=== PATIENT | male | born 1985 | race Asian ===

== ENCOUNTER 2018-11-15 12:49 | Emergency (ER) | payer OTHER ==
[2018-11-15] MEDS ORDERED: ONDANSETRON 4 MG/2 ML VIAL IVP ONE (13:45)
[2018-11-15] MEDS ORDERED: NS 1,000 ML IV ONE (13:45)
[2018-11-15] MEDS ORDERED: HYDROmorphONE/DILAUDID 2 MG/ML INJ IVP ONE ×2 (13:45→15:06)
--- NOTE | 2018-11-15 13:48 | EDPHY ---
General - History Smoking Status: Current some day smoker Time Seen by Provider: 11/15/18 13:37 Narrative: 1456: I examined this patient at the request of ROSA M Zheng. I have discussed the risks of not having a cholecystectomy as he could develop a severe infection. I discussed the process of the cholecystectomy with the patient in addition to arranging help for the patient after his surgery. Patient would like to talk with his family in [place] prior to deciding on having surgery. He is comfortable with proceeding with the surgery at this time. (Yung Moreno) CLINICAL IMPRESSION: Acute cholecystitis, cholelithiasis ASSESSMENT/PLAN: 33-year-old [place] male presents to the emergency department with complaints of right upper quadrant abdominal pain, nausea, vomiting since last night. Patient has a known history of cholelithiasis diagnosed several years ago by ultrasound in [place]. Patient has been NPO since this morning when he had a small amount of water. He has not had solid food since last night. He has right upper quadrant tenderness with rebound pain and positive Mcginnis sign. Ultrasound positive for acute cholecystitis with coli lithiasis and a nonvisualized common bile duct. No transaminitis. Mild leukocytosis of 13. Initially patient was refusing surgery and requested to return to [place] for surgery. Dr. Moreno also saw and examined the patient. Patient has agreed to IV antibiotics, analgesics, and discussion with the surgeon and would prefer to talk to his family before proceeding with surgery. I alerted Dr. Max who will see the patient in the operating room. Patient given a copy of his ultrasound on a CD for his doctors in [place]. Patient kept NPO with plan to proceed to surgery this evening. DIFFERENTIAL DX: Abdominal pain includes but not limited to acute appendicitis, diverticulitis, cholecystitis, pancreatitis, SBO, gastroenteritis, constipation ED PROCEDURES: See lab and/or imaging results below ED COURSE: 1:45 p.m.: Patient seen by myself, appears uncomfortable, planned IV, labs, right upper quadrant ultrasound, IV analgesics 2:33PM. Ultrasound discussed with Dr. Vogel. Patient has significant cholelithiasis, gallbladder wall thickening upwards of 3 mm. LFTs normal, leukocytosis of 13. I discussed ultrasound results and laboratory abnormalities with the patient. Patient is very resistant to getting surgery today and really prefers to have surgery in [place]. He tells me he can probably fly back to [place] in 2 weeks. I have explained to the patient that if his gallbladder is infected, waiting 2 weeks puts him at risk for serious infection including sepsis and possible . Patient is requesting antibiotics and pain medication until he can fly back to [place]. I discussed with Dr. Moreno who will talk to the patient as well. 3PM: Patient seen by Dr. Moreno. Plan to proceed with surgery. General surgery paged. Patient would like to talk to his family in [place] prior to deciding on surgery. Antibiotics and pain medications ordered. Discussed with Dr. Max who will come to ED to see the patient. CHIEF COMPLAINT: Right upper quadrant abdominal pain nausea and vomiting HPI: 33-year-old Romanian male presents to the emergency department with 1 days of right upper quadrant abdominal pain associated with nausea and vomiting. Patient moved to [facility] from [place] several months ago to go to work at [employer]. Patient reports he has known history of gallstones that were diagnosed several years ago. He had ultrasounds in both [place] and the [facility] but cannot recollect where in the [place]. He has not seen a local surgeon. He states after eating spicy food last night he developed worsening right upper quadrant pain nausea and vomiting. No reports of fever. No flank pain, dysuria, urgency, or visible hematuria. No history of kidney stones. He reports he is otherwise healthy PAST MEDICAL HISTORY: None reported See nurse/triage notes for additional history if applicable Pertinent Past Surgical History: None reported Family History: None reported Social History: Originally from [place], known history of cholelithiasis, [employer] student REVIEW OF SYSTEMS: All other systems negative Constitutional: No fever, no chills, positive for appetite change. Eyes: No discharge, vision change ENT: No sore throat, congestion, ear pain. Cardiovascular: No chest pain, no palpitations. Respiratory: No cough, no shortness of breath. Gastrointestinal: Positive for abdominal pain, nausea and vomiting, denies diarrhea. Genitourinary: No hematuria, dysuria, flank pain, pelvic pain Musculoskeletal: No back pain, joint swelling, joint pain, myalgias. PHYSICAL EXAM: General Appearance: Alert, oriented, overweight Romanian man, appropriate, cooperative, appears uncomfortable, slightly pale well hydrated, non-toxic appearing, VSS, no hypoxia. HEENT: Oropharynx clear is no erythema or exudates, no tonsillar hypertrophy or asymmetry. Dentition without abnormality.] Respiratory: There are no retractions, lungs are clear to auscultation. Cardiac: Regular rate and rhythm, no murmurs or gallops. Gastrointestinal: Abdomen is soft, right upper quadrant tenderness, positive Mcginnis sign, bowel sounds normal, no masses/hernia, no rigidity, guarding or focal peritoneal findings. Neurological: [ Alert and oriented x 3 Skin: Warm, dry, no rashes, no nodules on palpation. MEDICAL DECISION MAKING: Patient was seen independently. Secondary supervising physician at time of evaluation was Dr. Moreno. Diagnosis: Acute cholecystitis, cholelithiasis. New, requires workup Summary: See Assessment and Plan for summary of ED visit Clinical lab tests: ordered / reviewed. Independent visualization of images, tracing, or specimens: Yes. Decision to obtain medical records or history from someone other than the patient: No Review / Summarize previous medical records: None available Discussed patient with another provider: Dr. Moreno, Dr. Max, radiology Patient Progress: Stable. (Bryn Zheng) - Diagnostics Imaging Results: Imaging Impressions Abdomen Ultrasound 11/15/18 13:44 Impression: 1. Cholelithiasis, with multiple gallstones and gallbladder wall thickening consistent with acute cholecystitis. 2. Common bile duct not visualized. 3. Hepatic steatosis, with hepatic cysts. 4. Pancreas obscured by bowel gas. Findings and recommendations discussed with Emergency Department Physician Grants Officer, Bryn Yepez PA-C, at 1431 hours, on November 15, 2018. Final report concurs with initial preliminary interpretation. - Objective Vital Signs: Initial Vital Signs Temperature (C) 36.6 C 11/15/18 12:59 Heart Rate 73 11/15/18 12:59 Respiratory Rate 18 11/15/18 12:59 Blood Pressure 113/75 11/15/18 12:59 O2 Sat (%) 98 11/15/18 12:59 O2 Delivery Mode Room Air Allergies/Adverse Reactions: No Known Allergies Allergy (Unverified 11/15/18 12:59) Home Medications: Medication Instructions Recorded NK [No Known Home Meds] 11/15/18 Laboratory Results: Laboratory Results 11/15/18 13:40 11/15/18 13:40 11/15/18 11/15/18 13:40 13:40 WBC 13.97 10^3/uL H 10^3/uL (3.80-9.50) RBC 5.81 10^6/uL 10^6/uL (4.40-6.38) Hgb 17.1 g/dL g/dL (13.7-17.5) Hct 50.0 % % (40.0-51.0) MCV 86.1 fL fL (81.5-99.8) MCH 29.4 pg pg (27.9-34.1) MCHC 34.2 g/dL g/dL (32.4-36.7) RDW 12.3 % % (11.5-15.2) Plt Count 245 10^3/uL 10^3/uL (150-400) MPV 9.0 fL fL (8.7-11.7) Neut % (Auto) 85.3 % H % (39.3-74.2) Lymph % (Auto) 9.1 % L % (15.0-45.0) [place] % (Auto) 4.9 % % (4.5-13.0) Eos % (Auto) 0.0 % L % (0.6-7.6) Baso % (Auto) 0.2 % L % (0.3-1.7) Nucleat RBC Rel Count 0.0 % % (0.0-0.2) Absolute Neuts (auto) 11.92 10^3/uL H 10^3/uL (1.70-6.50) Absolute Lymphs (auto) 1.27 10^3/uL 10^3/uL (1.00-3.00) Absolute Monos (auto) 0.68 10^3/uL 10^3/uL (0.30-0.80) Absolute Eos (auto) 0.00 10^3/uL L 10^3/uL (0.03-0.40) Absolute Basos (auto) 0.03 10^3/uL 10^3/uL (0.02-0.10) Absolute Nucleated RBC 0.00 10^3/uL 10^3/uL (0-0.01) Immature Gran % 0.5 % % (0.0-1.1) Immature Gran # 0.07 10^3/uL 10^3/uL (0.00-0.10) Sodium 137 mEq/L mEq/L (135-145) Potassium 3.8 mEq/L mEq/L (3.5-5.2) Chloride 105 mEq/L mEq/L (97-110) Carbon Dioxide 22 mEq/l mEq/l (22-31) Anion Gap 10 mEq/L mEq/L (6-14) BUN 12 mg/dL mg/dL (7-23) Creatinine 0.8 mg/dL mg/dL (0.7-1.3) Estimated GFR > 60 Glucose 114 mg/dL H mg/dL (70-100) Calcium 9.1 mg/dL mg/dL (8.5-10.4) Total Bilirubin 1.4 mg/dL mg/dL (0.1-1.4) Conjugated Bilirubin 0.3 mg/dL mg/dL (0.0-0.5) Unconjugated Bilirubin 1.1 mg/dL mg/dL (0.0-1.1) AST 21 IU/L IU/L (17-59) ALT 35 IU/L IU/L (21-72) Alkaline Phosphatase 50 IU/L IU/L (38-126) Total Protein 7.6 g/dL g/dL (6.3-8.2) Albumin 4.8 g/dL g/dL (3.5-5.0) Lipase 80 IU/L IU/L (23-300) Medications Given: Discontinued Medications Hydromorphone HCl (Dilaudid) 0.5 mg IVP EDNOW ONE Stop: 11/15/18 13:46 Last Admin: 11/15/18 13:52 Dose: 0.5 mg Hydromorphone HCl (Dilaudid) 1 mg IVP EDNOW ONE Stop: 11/15/18 15:07 Last Admin: 11/15/18 15:15 Dose: 1 mg Sodium Chloride (Ns) 1,000 mls @ 0 mls/hr IV EDNOW ONE; Wide Open PRN Reason: Protocol Stop: 11/15/18 13:46 Last Admin: 11/15/18 13:53 Dose: 1,000 mls Cefoxitin Sodium 1 gm/ Sodium (Chloride) 50 mls @ 200 mls/hr IV EDNOW ONE PRN Reason: Protocol Stop: 11/15/18 15:19 Last Admin: 11/15/18 15:24 Dose: 50 mls Ondansetron HCl (Zofran) 4 mg IVP EDNOW ONE Stop: 11/15/18 13:46 Last Admin: 11/15/18 13:52 Dose: 4 mg
[2018-11-15 14:03] LABS: PLATELET COUNT 245 10^3/uL (150-400)
[2018-11-15] MEDS ORDERED: cefOXitin SODIUM 1 GM in NS 50 ML IV ONE (15:05)
[2018-11-15 15:15] VITALS: BP 100/73
--- NOTE | 2018-11-15 16:33 | PDGENHP ---
History and Physical - Chief Complaint RUQ abdominal pain - History of Present Illness 33yo M who recently relocated to [place] from [place] presents with acute onset RUQ pain. Has known gallstones, has had work[place]. Has not had an attack in awhile but last evening ate spicy food and shortly thereafter began to have progressive, sharp RUQ pain similar to an episode he had in [place]. Since that time, the pain has resolved somewhat but hasnt completely gone away which prompted his presentation here. The pain is sharp, RUQ, radiates to the back and up the shoulder. It is worse with PO intake. He denies fevers or chills. History Information - Allergies/Home Medication List Allergies/Adverse Reactions: No Known Allergies Allergy (Verified 11/15/18 15:39) I have personally reviewed and updated: medical history, social history, surgical history Past Medical History: known gallstones - Surgical History Reports: no pertinent surgical hx - Family History Positive for: non-pertinent - Social History Smoking Status: Current some day smoker Drug Use: None Additional social history: recently relocated from [place], works at [employer] Review of Systems Review of Systems: ROS: 10pt was reviewed & negative except for what was stated in HPI & below Physical Exam Physical Exam: Temp Pulse Resp BP Pulse Ox 36.8 C 82 16 100/73 97 11/15/18 15:14 11/15/18 15:14 11/15/18 15:14 11/15/18 15:14 11/15/18 15:14 Constitutional: no apparent distress, appears nourished, not in pain Eyes: PERRL, anicteric sclera, EOMI Ears, Nose, Mouth, Throat: moist mucous membranes, hearing normal, ears appear normal, no oral mucosal ulcers Cardiovascular: regular rate and rhythym, no murmur, rub, or gallop, No edema Respiratory: no respiratory distress, no rales or rhonchi, clear to auscultation Gastrointestinal: normoactive bowel sounds, other (TTP in RUQ with positive Marty. ) Genitourinary: no bladder fullness, no bladder tenderness Skin: warm, normal color, no rashes or abrasions, no fluctuance, no induration, No mottled Musculoskeletal: full muscle strength, no muscle tenderness, normal joint ROM, no joint effusions Psychiatric: interacting appropriately, not anxious, not encephalopathic, thought process linear Lymph, Heme, Immunologic: no cervical LAD, no supraclavicular LAD Lab Data & Imaging Review 11/15/18 13:40 11/15/18 13:40 WBC 13.97 10^3/uL (3.80-9.50) H 11/15/18 13:40 RBC 5.81 10^6/uL (4.40-6.38) 11/15/18 13:40 Hgb 17.1 g/dL (13.7-17.5) 11/15/18 13:40 Hct 50.0 % (40.0-51.0) 11/15/18 13:40 MCV 86.1 fL (81.5-99.8) 11/15/18 13:40 MCH 29.4 pg (27.9-34.1) 11/15/18 13:40 MCHC 34.2 g/dL (32.4-36.7) 11/15/18 13:40 RDW 12.3 % (11.5-15.2) 11/15/18 13:40 Plt Count 245 10^3/uL (150-400) 11/15/18 13:40 MPV 9.0 fL (8.7-11.7) 11/15/18 13:40 Neut % (Auto) 85.3 % (39.3-74.2) H 11/15/18 13:40 Lymph % (Auto) 9.1 % (15.0-45.0) L 11/15/18 13:40 [place] % (Auto) 4.9 % (4.5-13.0) 11/15/18 13:40 Eos % (Auto) 0.0 % (0.6-7.6) L 11/15/18 13:40 Baso % (Auto) 0.2 % (0.3-1.7) L 11/15/18 13:40 Nucleat RBC Rel Count 0.0 % (0.0-0.2) 11/15/18 13:40 Absolute Neuts (auto) 11.92 10^3/uL (1.70-6.50) H 11/15/18 13:40 Absolute Lymphs (auto) 1.27 10^3/uL (1.00-3.00) 11/15/18 13:40 Absolute Monos (auto) 0.68 10^3/uL (0.30-0.80) 11/15/18 13:40 Absolute Eos (auto) 0.00 10^3/uL (0.03-0.40) L 11/15/18 13:40 Absolute Basos (auto) 0.03 10^3/uL (0.02-0.10) 11/15/18 13:40 Absolute Nucleated RBC 0.00 10^3/uL (0-0.01) 11/15/18 13:40 Immature Gran % 0.5 % (0.0-1.1) 11/15/18 13:40 Immature Gran # 0.07 10^3/uL (0.00-0.10) 11/15/18 13:40 Sodium 137 mEq/L (135-145) 11/15/18 13:40 Potassium 3.8 mEq/L (3.5-5.2) 11/15/18 13:40 Chloride 105 mEq/L (97-110) 11/15/18 13:40 Carbon Dioxide 22 mEq/l (22-31) 11/15/18 13:40 Anion Gap 10 mEq/L (6-14) 11/15/18 13:40 BUN 12 mg/dL (7-23) 11/15/18 13:40 Creatinine 0.8 mg/dL (0.7-1.3) 11/15/18 13:40 Estimated GFR > 60 11/15/18 13:40 Glucose 114 mg/dL (70-100) H 11/15/18 13:40 Calcium 9.1 mg/dL (8.5-10.4) 11/15/18 13:40 Total Bilirubin 1.4 mg/dL (0.1-1.4) 11/15/18 13:40 Conjugated Bilirubin 0.3 mg/dL (0.0-0.5) 11/15/18 13:40 Unconjugated Bilirubin 1.1 mg/dL (0.0-1.1) 11/15/18 13:40 AST 21 IU/L (17-59) 11/15/18 13:40 ALT 35 IU/L (21-72) 11/15/18 13:40 Alkaline Phosphatase 50 IU/L (38-126) 11/15/18 13:40 Total Protein 7.6 g/dL (6.3-8.2) 11/15/18 13:40 Albumin 4.8 g/dL (3.5-5.0) 11/15/18 13:40 Lipase 80 IU/L (23-300) 11/15/18 13:40 Visualized and Interpreted imaging results: Yes Interpretation: US: gallstones, GBW thickening, CBD non-vis Assessment & Plan Assessment: 33yoM c cholecystitis Plan: I feel like he has a clear case of cholecystitis and my recommendation was for cholecystectomy. He phoned his parents in [place] and it was their recommendation that he return to [place] to have the surgery, he is in agreement with this. I explained the risks of delaying surgery, including worsening infection, more difficult surgery with higher complications and even . He understands, he does want PO antibiotics and wants to leave and fly back to [place] within the week for surgery there. Again, all of this was against my recommendation and he fully understands the risks associated with this.
== END 2018-11-15 16:26 | disposition home or self-care (01) ==
LOC: UNDOADMOB 15:12
DX: K80.00 Calculus of gallbladder with acute cholecystitis without obstruction (principal); K76.89 Other specified diseases of liver
CPT/HCPCS: 96365; J0694; J1170; J2405

== ENCOUNTER 2018-11-17 20:06 | Inpatient (IN) | payer OTHER ==
--- NOTE | 2018-11-17 20:27 | EDPHY ---
H & P Stated Complaint: Gallstones, seen thursday, Upper R abd pain Time Seen by Provider: 11/17/18 20:21 - Personal History Current Tetanus Diphtheria and Acellular Pertussis (TDAP): Yes - Medical/Surgical History Hx Asthma: No Hx Chronic Respiratory Disease: No Hx Diabetes: No Hx Cardiac Disease: No Hx Renal Disease: No Hx Cirrhosis: No Hx Alcoholism: No Hx HIV/AIDS: No Hx Splenectomy or Spleen Trauma: No Other PMH: gallbladder issues - Social History Smoking Status: Current some day smoker Constitutional: Initial Vital Signs Temperature (C) 36.9 C 11/17/18 20:12 Heart Rate 90 11/17/18 20:12 Respiratory Rate 16 11/17/18 20:12 Blood Pressure 132/92 H 11/17/18 20:12 O2 Sat (%) 93 11/17/18 20:12 O2 Delivery Mode Room Air Allergies/Adverse Reactions: No Known Allergies Allergy (Verified 11/17/18 20:14) Home Medications: Medication Instructions Recorded Hydrocodone/APAP 5/325 [[place] 1 - 2 tab PO Q4H PRN #10 tab 11/15/18 5/325 (*)] Amoxicillin/Clavulanate Pot 875 mg PO BID 11/17/18 [Augmentin 875 MG TAB (*)] Medical Decision Making ED Course/Re-evaluation: CHIEF COMPLAINT: Cholecystitis, abdominal pain HISTORY OF PRESENT ILLNESS: This patient is a 33 year old male with known cholecystitis diagnosed by CT two days ago in this emergency department. At that time he was counseled to undergo urgent cholecystectomy, but he strongly preferred to go home to [place] for the procedure and ended up leaving [place]. He returns today as the pain has persisted and is very intense currently. The pain is sharp, primarily in the right upper quadrant, and radiates to the back and up the shoulder. It is worse with PO intake, but he was able to tolerate some toast and water this evening. He is amenable to undergoing surgery here today. His last PO intake was around 18:00, two and a half hours ago. He denies chest pain, shortness of breath, or other associated symptoms. REVIEW OF SYSTEMS: A comprehensive 10 system review of systems is otherwise negative aside from elements mentioned in the history of present illness and medical decision making. PHYSICAL EXAM: HR, BP, O2 Sat, RR. Temp noted General Appearance: Alert, well hydrated, appropriate, and non-toxic appearing. Head: Atraumatic without scalp tenderness or obvious injury Eyes: Pupils equal, round, reactive to light and accommodation, EOMI, no trauma , no injection. Ears: Clear bilaterally, no perforation, normal landmarks Nose: Atraumatic, no rhinorrhea, clear. Throat: There is no erythema or exudates, no lesions, normal tonsils, mucus membranes moist. Neck: Supple, 2+ carotid upstroke, nontender, no lymphadenopathy. Respiratory: No retractions, no distress, no wheezes, and no accessory muscle use. Lungs are clear to auscultation bilaterally. Cardiovascular: Regular rate and rhythm, no murmurs, rubs, or gallops. Bilateral carotid, radial, dorsalis pedis, and posterior tibial pulses intact. Good capillary refill all extremities. Gastrointestinal: Right upper quadrant tenderness. Abdomen is soft, non- distended, no masses, no rebound, no guarding, no peritoneal signs. Musculoskeletal: Normal active ROM of all extremities, atraumatic. Neurological: Alert, appropriate, and interactive. The patient has normal DTRs and non-focal cranial nerves, motor, sensory, and cerebellar exam. Skin: No rashes, good turgor, no nodules on palpation. Past medical history: Cholelithiasis. Past surgical history: Noncontributory Family history: Noncontributory Social history: Originally from [place], [employer] student. Friend at bedside. DIFFERENTIAL DIAGNOSIS: The differential diagnosis for the patient's abdominal pain included but was not limited to appendicitis, cholecystitis, hernias, testicular torsion, gastritis, and urinary tract infection. MEDICAL DECISION MAKING: This is a 33 year old male with known cholecystitis who returns to the emergency department for persistent abdominal discomfort. He agrees today that undergoing surgery here rather than attempting to return to [place] is the best course of action. Plan to consult with general surgery. Plan for repeat laboratory studies. We will not perform repeat CT imaging at this time as he had CT positive for cholecystitis two days ago. WBC remains elevated. Administered 1mg IV Dilaudid, 30mg IV Toradol, 4mg IV Zofran, and 1l IV NS for symptom relief. 20:50 Dr. Gonsalves accepts admission for perioperative management of acute cholecystitis. Plan to administer 1gm cefoxitin. - Data Points Laboratory Results: Laboratory Results 11/17/18 20:28 11/17/18 20:28 11/17/18 11/17/18 11/17/18 20:28 20:28 20:28 WBC 11.49 10^3/uL H 10^3/uL (3.80-9.50) RBC 6.03 10^6/uL 10^6/uL (4.40-6.38) Hgb 18.0 g/dL H g/dL (13.7-17.5) Hct 53.3 % H % (40.0-51.0) MCV 88.4 fL fL (81.5-99.8) MCH 29.9 pg pg (27.9-34.1) MCHC 33.8 g/dL g/dL (32.4-36.7) RDW 11.9 % % (11.5-15.2) Plt Count 247 10^3/uL 10^3/uL (150-400) MPV 8.5 fL L fL (8.7-11.7) Neut % (Auto) 72.1 % % (39.3-74.2) Lymph % (Auto) 18.5 % % (15.0-45.0) [place] % (Auto) 7.8 % % (4.5-13.0) Eos % (Auto) 0.8 % % (0.6-7.6) Baso % (Auto) 0.3 % % (0.3-1.7) Nucleat RBC Rel Count 0.0 % % (0.0-0.2) Absolute Neuts (auto) 8.27 10^3/uL H 10^3/uL (1.70-6.50) Absolute Lymphs (auto) 2.13 10^3/uL 10^3/uL (1.00-3.00) Absolute Monos (auto) 0.90 10^3/uL H 10^3/uL (0.30-0.80) Absolute Eos (auto) 0.09 10^3/uL 10^3/uL (0.03-0.40) Absolute Basos (auto) 0.04 10^3/uL 10^3/uL (0.02-0.10) Absolute Nucleated RBC 0.00 10^3/uL 10^3/uL (0-0.01) Immature Gran % 0.5 % % (0.0-1.1) Immature Gran # 0.06 10^3/uL 10^3/uL (0.00-0.10) PT 12.3 SEC SEC (12.0-15.0) INR 0.95 (0.83-1.16) APTT 27.5 SEC SEC (23.0-38.0) Sodium 136 mEq/L mEq/L (135-145) Potassium 3.4 mEq/L L mEq/L (3.5-5.2) Chloride 99 mEq/L mEq/L (97-110) Carbon Dioxide 26 mEq/l mEq/l (22-31) Anion Gap 11 mEq/L mEq/L (6-14) BUN 15 mg/dL mg/dL (7-23) Creatinine 0.9 mg/dL mg/dL (0.7-1.3) Estimated GFR > 60 Glucose 96 mg/dL mg/dL (70-100) Calcium 9.3 mg/dL mg/dL (8.5-10.4) Total Bilirubin 1.2 mg/dL mg/dL (0.1-1.4) Conjugated Bilirubin 0.4 mg/dL mg/dL (0.0-0.5) Unconjugated Bilirubin 0.8 mg/dL mg/dL (0.0-1.1) AST 26 IU/L IU/L (17-59) ALT 47 IU/L IU/L (21-72) Alkaline Phosphatase 48 IU/L IU/L (38-126) Total Protein 7.8 g/dL g/dL (6.3-8.2) Albumin 4.7 g/dL g/dL (3.5-5.0) Lipase 84 IU/L IU/L (23-300) Medications Given: Discontinued Medications Hydromorphone HCl (Dilaudid) 1 mg IVP EDNOW ONE Stop: 11/17/18 20:37 Last Admin: 11/17/18 20:47 Dose: 1 mg Cefoxitin Sodium 1 gm/ Sodium (Chloride) 50 mls @ 200 mls/hr IV EDNOW ONE PRN Reason: Protocol Stop: 11/17/18 20:50 Last Admin: 11/17/18 20:59 Dose: 50 mls Sodium Chloride (Ns) 1,000 mls @ 0 mls/hr IV EDNOW ONE; Wide Open PRN Reason: Protocol Stop: 11/17/18 20:37 Last Admin: 11/17/18 20:44 Dose: 1,000 mls Ketorolac Tromethamine (Toradol) 30 mg IVP EDNOW ONE Stop: 11/17/18 20:37 Last Admin: 11/17/18 20:45 Dose: 30 mg Ondansetron HCl (Zofran) 4 mg IVP EDNOW ONE Stop: 11/17/18 20:37 Last Admin: 11/17/18 20:44 Dose: 4 mg Departure - Departure Disposition: [facility] Acute Clinical Impression: Acute cholecystitis Condition: Fair Report Scribed for: Yung Moreno Report Scribed by: Landy Gary Date of Report: 11/17/18 Time of Report: 21:41
--- NOTE | 2018-11-17 20:27 | EDPHY ---
H & P Stated Complaint: Gallstones, seen thursday, Upper R abd pain Time Seen by Provider: 11/17/18 20:21 - Personal History Current Tetanus Diphtheria and Acellular Pertussis (TDAP): Yes - Medical/Surgical History Hx Asthma: No Hx Chronic Respiratory Disease: No Hx Diabetes: No Hx Cardiac Disease: No Hx Renal Disease: No Hx Cirrhosis: No Hx Alcoholism: No Hx HIV/AIDS: No Hx Splenectomy or Spleen Trauma: No Other PMH: gallbladder issues - Social History Smoking Status: Current some day smoker Constitutional: Initial Vital Signs Temperature (C) 36.9 C 11/17/18 20:12 Heart Rate 90 11/17/18 20:12 Respiratory Rate 16 11/17/18 20:12 Blood Pressure 132/92 H 11/17/18 20:12 O2 Sat (%) 93 11/17/18 20:12 O2 Delivery Mode Room Air Allergies/Adverse Reactions: No Known Allergies Allergy (Verified 11/17/18 20:14) Home Medications: Medication Instructions Recorded Hydrocodone/APAP 5/325 [[place] 1 - 2 tab PO Q4H PRN #10 tab 11/15/18 5/325 (*)] Medical Decision Making ED Course/Re-evaluation: Patient needs surgery today. He is amenable to this today. He states the pain is very intense today. Last PO intake was around 18;00, 2.5 hours ago. He had some toast and water. Departure - Departure Referrals: NONE *PRIMARY CARE P,. [Primary Care Provider] - As per Instructions
[2018-11-17] MEDS ORDERED: HYDROmorphONE/DILAUDID 2 MG/ML INJ IVP ONE (20:36)
[2018-11-17] MEDS ORDERED: KETOROLAC 30 MG/1 ML SDV IVP ONE (20:36)
[2018-11-17] MEDS ORDERED: NS 1,000 ML IV ONE (20:36)
[2018-11-17] MEDS ORDERED: cefOXitin SODIUM 1 GM in NS 50 ML IV ONE (20:36)
[2018-11-17] MEDS ORDERED: ONDANSETRON 4 MG/2 ML VIAL IVP ONE (20:36)
[2018-11-17 20:43] LABS: PLATELET COUNT 247 10^3/uL (150-400)
[2018-11-17 20:51] LABS: INR 0.95 (0.83-1.16); PROTIME(PATIENT) 12.3 SEC (12.0-15.0)
[2018-11-17] MEDS ORDERED: HYDROmorphONE/DILAUDID 6 MG/30 ML PCA IV PRN (23:50)
[2018-11-17] MEDS ORDERED: ONDANSETRON 4 MG/2 ML VIAL IVP PRN (23:50)
[2018-11-17] MEDS ORDERED: NALOXONE HCL 0.4 MG/ML INJ IVP PRN (23:50)
[2018-11-18] MEDS ORDERED: ERTAPENEM 1 GM in NS 100 ML IV ONE (00:30)
[2018-11-18] MEDS: D5W 1/2 NS W/ 20 KCl/L 1,000 ML IV SCH ×3 (01:45→23:02)
[2018-11-18] MEDS ORDERED: HEPARIN 1000 UNIT/1 ML MDV ONE (08:47)
[2018-11-18] MEDS ORDERED: BUPIVACAINE 0.5% 30 ML SDV ONE (08:47)
[2018-11-18] MEDS ORDERED: IOTHALAMATE MEG (CONRAY) 50 ML VIAL IV ONE (08:47)
[2018-11-18] MEDS ORDERED: ceFAZolin 1 GM/5 ML SYR ONE (08:47)
--- NOTE | 2018-11-18 08:55 | GCON ---
[f rep st] CONSULTATION CHIEF COMPLAINT: Right upper quadrant pain radiating to the back. HISTORY OF PRESENT ILLNESS: This is a 33-year-old male who recently relocated to the [facility], who presented to the Emergency Department last night complaining of right upper quadrant pain. He was originally seen earlier this week, on 11/15/2018. At that time, he underwent an abdomen ultrasound that revealed cholelithiasis, with multiple gallstones and gallbladder wall thickening, consistent with acute cholecystitis. It also revealed hepatic steatosis with hepatic cysts. He was seen by Dr. Max, who recommended the patient undergo laparoscopic cholecystectomy. The patient decided that he wanted to go back to [place] to have surgery there. He had planned on going to [place] at some point later this week. His symptoms worsened, and he presented once again to the Emergency Department last night. He has been on amoxicillin since being discharged from the Emergency Department on Thursday. Today, his white blood cell count is 11.49. His liver function tests are normal, as is his lipase. PAST MEDICAL HISTORY: None. PAST SURGICAL HISTORY: Left cisse surgery. MEDICATIONS: Amoxicillin. ALLERGIES: No known drug allergies. SOCIAL HISTORY: The patient is a current smoker. He reports that he smokes approximately 1 pack per week. He denies use of recreational drugs. PHYSICAL EXAM: GENERAL: This is a well-appearing, well-dressed male resting comfortably in hospital bed in no acute distress. HEENT: Normocephalic, atraumatic. No gross hearing deficits. Mucous membranes are moist. PERRLA. CARDIAC: Regular rate and rhythm. No clicks, murmurs or rubs. CHEST: Clear to auscultation bilaterally. No increased work of breathing. ABDOMEN: Soft, tender to palpation in the right upper quadrant. Normoactive bowel sounds. NEUROLOGIC: Alert and oriented. PSYCHIATRIC: Appropriate mood and affect. MUSCULOSKELETAL: Moves all extremities equally x4. IMPRESSION AND PLAN: This is a 33-year-old male who was diagnosed 3 days ago with acute cholecystitis. He chose to not undergo surgery at that time and wished to return to [place] to have surgery. His symptoms subsequently worsened, and he re-presented to our Emergency Department last night. Recommend laparoscopic cholecystectomy. We discussed all risks and options. Risks of surgery include, but are not limited to, infection, bleeding, damage to surrounding structures, bile leak, need for ERCP, heart attack and . Patient understands and wishes to proceed. We will proceed with laparoscopic cholecystectomy. /[id number]/MODL MTDD
[2018-11-18] MEDS ORDERED: LR 1,000 ML IV ONE (09:21)
--- NOTE | 2018-11-18 09:49 | ASMTCMCOM ---
CM Note CM Note Notes: Chart reviewed. Pt is a 33 year old admitted with reoccurrant Right abdominal pain. Pt has decided to have a Laparoscopic Cholecystectomy this morning. Case management available if needs arise. Plan: TBA Date Signed: 11/18/2018 09:49 AM Electronically Signed By:Roxana Perez
[2018-11-18] MEDS ORDERED: MIDAZOLAM 2 MG/2 ML VIAL IVP ONE (10:30)
--- NOTE | 2018-11-18 10:30 | PDANEPAE ---
ANE History of Present Illness Acute gall bladder ANE Past Medical History - Cardiovascular History Hx Hypertension: No Hx Arrhythmias: No - Pulmonary History Hx COPD: No Hx Asthma/Reactive Airway Disease: No Hx Oxygen in Use at Home: No Hx Sleep Apnea: No Sleep Apnea Screening Result - Last Documented: Negative - Endocrine History Hx Diabetes: No ANE Review of Systems Review of systems is: negative Review of Systems: - Exercise capacity METS (RN): 5 METS ANE Patient History - Allergies Allergies/Adverse Reactions: No Known Allergies Allergy (Verified 11/17/18 20:14) - Home Medications Home medications: home medication list seen and reviewed Home Medications: Amoxicillin/Clavulanate Pot [Augmentin 875 MG TAB (*)] 875 mg PO BID 11/17/18 [ Last Taken 11/17/18 both doses] - NPO status NPO Since - Liquids (Date): 11/18/18 NPO Since - Liquids (Time): 00:01 NPO Since - Solids (Date): 11/18/18 NPO Since - Solids (Time): 00:01 - Anes Hx Anes Hx: no prior problems - Smoking Hx Smoking Status: Current some day smoker ANE Labs/Vital Signs - Labs Result Diagrams: 11/17/18 20:28 11/17/18 20:28 - Vital Signs Blood Pressure: 135/90 Heart Rate: 97 Respiratory Rate: 16 O2 Sat (%): 93 Height: 182.88 cm Weight: 107.411 kg ANE Physical Exam - Airway Neck exam: FROM Mallampati Score: Class 2 - Pulmonary Pulmonary: no respiratory distress - Cardiovascular Cardiovascular: regular rate and rhythym - ASA Status ASA Status: II ANE Anesthesia Plan Anesthesia Plan: general endotracheal anesthesia (Consent given using phone machine set up technician. Questions answered.)
[2018-11-18] MEDS ORDERED: MIDAZOLAM 2 MG/2 ML VIAL ONE (10:31)
[2018-11-18] MEDS ORDERED: fentaNYL 100 MCG/2 ML INJ ONE ×3 (10:49→12:46)
[2018-11-18] MEDS ORDERED: LIDOCAINE 2% 5 ML SDV ONE (10:50)
[2018-11-18] MEDS ORDERED: PROPOFOL 200 MG/20 ML VIAL ONE (10:50)
[2018-11-18] MEDS ORDERED: DEXAMETHASONE 4 MG/ML VIAL ONE (11:11)
[2018-11-18] MEDS ORDERED: ROCURONIUM 50 MG/5 ML VIAL ONE ×2 (11:17)
[2018-11-18] MEDS ORDERED: SUGAMMADEX SODIUM 200 MG/2 ML VIAL IVP ONE (12:10)
[2018-11-18] MEDS ORDERED: NALOXONE HCL 0.4 MG/ML INJ IVP PRN (12:36)
[2018-11-18] MEDS ORDERED: PROMETHAZINE HCL 25 MG/ML INJ IVP PRN (12:36)
[2018-11-18] MEDS ORDERED: ONDANSETRON 4 MG/2 ML VIAL IVP PRN (12:36)
[2018-11-18] MEDS ORDERED: HYDROmorphONE/DILAUDID 2 MG/ML INJ IVP PRN (12:36)
--- NOTE | 2018-11-18 12:39 | POSTANESTH ---
Post Anesthetic Evaluation Cardiovascular Status: Similar to Pre-Op Cond Respiratory Status: Similar to Pre-op Cond. Level of Consciousness/Mental Status: Alert and Oriented Pain Control: Adequate, Prn Tx Ordered Nausea/Vomiting Control: Adequate, Prn Tx Ordered Complications Possibly Related to Anesthesia: None Noted
[2018-11-18] MEDS ORDERED: ONDANSETRON 4 MG/2 ML VIAL ONE (12:40)
[2018-11-18] MEDS: fentaNYL 100 MCG/2 ML INJ IVP PRN ×3 (12:46→13:26)
[2018-11-18] MEDS ORDERED: oxyCODONE IR 5 MG TAB PO PRN (12:52)
--- NOTE | 2018-11-18 13:02 | POSTOPPROG ---
Post Op Note Date of Operation: 11/18/18 Surgeon: Sulaiman Gonsalves Specialized Language Instructor: Samira Anesthesiologist: Jose Anesthesia: GET(General Endotracheal) Pre-op Diagnosis: Cholecystitis, cholelithiasis Post-op Diagnosis: same Indication: Same, pain Procedure: Lap vicky Findings: Hydrops of the gallbladder Inf/Abcess present in the surg proc area at time of surgery?: Yes Depth: Organ Space EBL: Minimal Specimen(s): Gall bladder- culture Gall bladder - permanent
[2018-11-18] MEDS ORDERED: HYDROmorphONE/DILAUDID 2 MG/ML INJ ONE (13:27)
[2018-11-18] MEDS: cefOXitin SODIUM 2 GM in NS 100 ML IV SCH ×2 (19:16→23:59)
[2018-11-19] MEDS: cefOXitin SODIUM 2 GM in NS 100 ML IV SCH ×4 (05:07→23:42)
[2018-11-19] MEDS: D5W 1/2 NS W/ 20 KCl/L 1,000 ML IV SCH (06:47)
[2018-11-19] MEDS ORDERED: ACETAMINOPHEN 325 MG TAB PO PRN (07:22)
[2018-11-19] MEDS ORDERED: HYDROmorphONE/DILAUDID 1 MG/ML INJ IVP PRN (11:55)
--- NOTE | 2018-11-19 16:39 | SOAPPROG ---
SOAP Progress Note Assessment/Plan: Assessment: 33 y/o M s/p lap vicky, found to have hydrops of the gallbladder POD #1 S: Having incisional pain, but meds helping. Tolerating low fat diet. Not passing gas or BMs yet. Prefers to stay another night in the hospital. O: Alert Febrile at 37.5C RRR No increased WOB Abdomen: soft, attp, nondistended. Plan: Likely d/c home tomorrow. 11/19/18 16:37 Objective: Vital Signs Temp Pulse Resp BP Pulse Ox 36.8 C 103 H 18 130/87 H 90 L 11/19/18 15:19 11/19/18 15:19 11/19/18 15:19 11/19/18 15:19 11/19/18 15:19 Microbiology 11/18/18 12:10 Gram Stain - Final Gallbladder - Swab 11/18/18 12:10 Mycobacterial Smear (MIGUE) - Final Gallbladder - Swab Mycobacterial Culture - Final 11/18/18 11/19/18 11/20/18 05:59 05:59 05:59 Intake Total 1000 2059 3312 Output Total 10 500 Balance 1000 2049 2812 PT 12.3 SEC (12.0-15.0) 11/17/18 20:28 INR 0.95 (0.83-1.16) 11/17/18 20:28 ICD10 Worksheet Patient Problems: Problems Problem Status Onset Acute cholecystitis Acute
[2018-11-20] MEDS: cefOXitin SODIUM 2 GM in NS 100 ML IV SCH ×4 (05:51→23:45)
--- NOTE | 2018-11-20 12:16 | ASMTCMCOM ---
CM Note CM Note Notes: Pt is s/p alpesh perry, postop day 2. Anticipate d/c home tomorrow with no CM needs if medically cleared. D/C plan: home independent Date Signed: 11/20/2018 12:15 PM Electronically Signed By:ANNEMARIE Varner
--- NOTE | 2018-11-20 13:13 | SOAPPROG ---
SOAP Progress Note Assessment/Plan: Assessment: DOING MUCH BETTER TODAY BUT STILL LOW-GRADE TEMPS LAST NIGHT AND THIS MORNING NONICTERIC AFEBRILE NOW ABDOMEN SOFT POSITIVE BOWEL SOUNDS AND WELL-HEALING INCISIONS/NONTENDER CHEST CLEAR/COR REGULAR RHYTHM EATING WELL SOME FLATUS GALLBLADDER CULTURE SHOWS KLEBSIELLA SENSITIVE TO MEFOXIN Plan: CONTINUE IV ANTIBIOTICS PROBABLY HOME IN THE A.M. ON ORAL ANTIBIOTICS 11/20/18 13:11 Objective: Vital Signs Temp Pulse Resp BP Pulse Ox 36.6 C 90 18 133/82 H 93 11/20/18 07:46 11/20/18 07:46 11/20/18 07:46 11/20/18 07:46 11/20/18 07:46 Microbiology 11/18/18 12:10 Gram Stain - Final Gallbladder - Swab 11/18/18 12:10 Mycobacterial Smear (MIGUE) - Final Gallbladder - Swab Mycobacterial Culture - Final 11/19/18 11/20/18 11/21/18 05:59 05:59 05:59 Intake Total 2059 4362 Output Total 10 500 Balance 2049 3862 PT 12.3 SEC (12.0-15.0) 11/17/18 20:28 INR 0.95 (0.83-1.16) 11/17/18 20:28 ICD10 Worksheet Patient Problems: Problems Problem Status Onset Acute cholecystitis Acute
[2018-11-20] MEDS ORDERED: PNEUMOCOCCAL 0.5ML VACCINE VIAL (PNEUMOVAX 23) IM ONE (13:39)
--- NOTE | 2018-11-20 14:15 | PDMN ---
Medical Necessity Medical necessity: Change to inpt as of 11/20/18 @ 13:58, pt meets inpt criteria per MD order and [facility] [id number] by Laparoscopy. 33 y/o w/ cholecystitis and cholelithiasis underwent lap vicky, was found to have hydrops of the gallbladder. Upgraded to inpt for failure to reach dc readiness due to evidence of infection: low grade temps during night, GB cultures w/Klebsiella requiring further IV ABX's. Est LOS> 2MN for ongoing management of above.
[2018-11-21] MEDS: cefOXitin SODIUM 2 GM in NS 100 ML IV SCH ×2 (06:02→12:37)
[2018-11-21 07:54] VITALS: BP 112/78
--- NOTE | 2018-11-21 11:25 | SOAPPROG ---
SOAP Progress Note Assessment/Plan: Assessment: DOING MUCH BETTER TODAY BUT STILL LOW-GRADE TEMPS LAST NIGHT AND THIS MORNING NONICTERIC AFEBRILE NOW ABDOMEN SOFT POSITIVE BOWEL SOUNDS AND WELL-HEALING INCISIONS/NONTENDER CHEST CLEAR/COR REGULAR RHYTHM EATING WELL SOME FLATUS GALLBLADDER CULTURE SHOWS KLEBSIELLA SENSITIVE TO MEFOXIN Plan: CONTINUE IV ANTIBIOTICS PROBABLY HOME IN THE A.M. ON ORAL ANTIBIOTICS 11/20/18 13:11 11/21/18 11:24 DOING WELL STATUS POST LAP CHOLY/AFEBRILE/NONICTERIC EATING WELL WITH POSITIVE FLATUS ABDOMEN SOFT NONTENDER WITH WELL-HEALING INCISIONS/ACTIVE BOWEL SOUNDS PLAN: HOME TODAY ON ORAL ANTIBIOTICS/RISKS AND OPTIONS FULLY DISCUSSED AND INSTRUCTIONS GIVEN Objective: Vital Signs Temp Pulse Resp BP Pulse Ox 36.8 C 79 16 112/78 93 11/21/18 07:54 11/21/18 07:54 11/21/18 07:54 11/21/18 07:54 11/21/18 07:54 11/20/18 11/21/18 11/22/18 05:59 05:59 05:59 Intake Total 910 Balance 910 PT 12.3 SEC (12.0-15.0) 11/17/18 20:28 INR 0.95 (0.83-1.16) 11/17/18 20:28 ICD10 Worksheet Patient Problems: Problems Problem Status Onset Acute cholecystitis Acute
--- NOTE | 2018-11-21 11:36 | ASMTLACE ---
LACE Length of stay for Answers: Less than 1 day current admission # of Emergency department Answers: 1-2 visits in the last 6 months Score: 1 Date Signed: 11/21/2018 11:35 AM Electronically Signed By:Antoinette Alejandro RN
--- NOTE | 2018-11-21 11:38 | ASMTDCNOTE ---
Case Management Discharge Discharge Order Complete? Answers: Yes Patient to Obtain Answers: Independently Medications Transportation Arranged Answers: Family/Friends Family Notified Answers: Yes Discharge Comments Notes: Medically cleared for discharge to home no needs. Date Signed: 11/21/2018 11:38 AM Electronically Signed By:Antoinette Alejandro RN
[2018-11-21] MEDS ORDERED: PNEUMOCOCCAL 0.5ML VACCINE VIAL (PNEUMOVAX 23) IM ONE (12:08)
--- NOTE | 2018-11-22 07:18 | GOP ---
[f rep st] OPERATIVE REPORT DATE OF OPERATION: 11/18/2018 SURGEON: Sulaiman Gonsalves MD GLASS BREAKER: Radha Hogan NP PREOPERATIVE DIAGNOSIS: Acute cholecystitis. POSTOPERATIVE DIAGNOSIS: Acute cholecystitis. PROCEDURE PERFORMED: Laparoscopic cholecystectomy. FINDINGS: The patient was found to have a hydrops, markedly thickened, pus containing gallbladder wi th multiple stones. DESCRIPTION OF PROCEDURE: The patient was taken to the operating room where he received a satisfacto ry general endotracheal anesthesia. He was placed in the supine position, prepped and draped in the usual sterile fashion. A periumbilical incision was made. A Veress needle inserted. Pneumoperitone um was established. Trocar was introduced. Laparoscope introduced. Good visualization was obtained . Three other trocars were placed in the upper abdomen under direct vision. The gallbladder was galindo vated up. Adhesions were taken down freeing the entire length of the gallbladder until the cystic tr iangle could be well visualized. The cystic triangle was then carefully dissected free. A good leif r view was established. The gallbladder was partially freed up from the bed and the hepatic fossa. The cystic artery and cystic duct were then multiply hemoclipped and divided with care to avoid injur y to the common bile duct, which was visualized. Both structures were divided and the peritoneum of the gallbladder was then incised and was dissected free from the bed of the hepatic fossa. It was th en extracted through the upper midline port site. This required significant enlargement of the port site. Hemostasis was achieved. The gallbladder was removed. The specimen was cultured and sent to Pathology. There were multiple stones. The wound was copiously irrigated. Hemostasis was assured. Trocars were then removed under direct vision. Trocar sites were closed with 0 Vicryl for the fasci a, 4-0 Monocryl subcuticular stitch for the skin. All layers infiltrated with 0.5% Marcaine. Blood loss negligible. No complications. Taken to the recovery room in good condition. /[id number]/MODL
== END 2018-11-21 14:17 | disposition home or self-care (01) | DRG 418 ==
LOC: F1N 21:47 → OBSVTOIN 11-20 13:58
PROVIDERS: ADMIT Surgery; ATTEND Surgery
PROC: 0FT44ZZ Resection of Gallbladder, Percutaneous Endoscopic Approach (ICD-10-PCS; principal; 2018-11-18 10:30)
DX: K80.12 Calculus of gallbladder with acute and chronic cholecystitis without obstruction (principal); K82.1 Hydrops of gallbladder; K76.0 Fatty (change of) liver, not elsewhere classified; K76.89 Other specified diseases of liver; B96.1 Klebsiella pneumoniae [K. pneumoniae] as the cause of diseases classified elsewhere; Z23 Encounter for immunization; Z87.891 Personal history of nicotine dependence
CPT/HCPCS: 96365; G0008; G0009; G0378; J0694; J1100; J1170; J1335; J1885; J2250; J2405; J2704; J3010; Q9961

== ENCOUNTER → 2019-03-21 | Outpatient (CLI) | payer OTHER | LOC: FIMAGING 07:45 ==